=== PATIENT | female | born 1935 | race Caucasian/White ===

== ENCOUNTER 2019-09-22 17:54 | Inpatient (IN) | payer MEDICARE, OTHER ==
[~2019-09-22] VITALS: Ht 167.6 cm; Wt 58.5 kg
--- NOTE | ~2019-09-22 | CON ---
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 The patient has been consulted for constipation. The patient denies any abdominal pain, nausea, vomiting, diarrhea, hematemesis, hematochezia. The patient reports that she did have a normal colonoscopy some time in the past. It is unclear when it was done. PAST MEDICAL HISTORY: CVA with left-sided hemiparesis, mild cognitive impairment. PAST MEDICAL HISTORY: CHF, hypertension. PAST SURGICAL HISTORY: Appendectomy, cholecystectomy, right total knee arthroplasty. SOCIAL HISTORY: The patient has no history of smoking, alcohol or recreational drug use. FAMILY HISTORY: Not relevant. REVIEW OF SYSTEMS: Unable to obtain because of the patient's mental status. PHYSICAL EXAMINATION: GENERAL: The patient is alert and oriented x 1. HEENT: Mucous membranes are moist. There is no congestion. LUNGS: Clear to auscultation bilaterally. CARDIOVASCULAR: Rate and rhythm regular, S1, S2 present. ABDOMEN: Soft. There is no distention, guarding or rigidity. EXTREMITIES: Warm, well perfused. There is no edema. LABORATORY DATA: Hemoglobin 10.8, hematocrit 31.8, platelet count 450, WBC count 9.2. Sodium 134, potassium 4.1, chloride 98, bicarbonate 27, BUN 22, creatinine 1.3, total bilirubin 0.6, AST 31, ALT 18, alkaline phosphatase 68. IMAGING: Acute abdomen series findings suggestive of obstipation, [place] [id number] CONSULTATION Name: VERN BARRIENTOS Room: [address] IN [facility]#: [id number] Admission: 09/22/19 Attend Phys: Keven Zamora MD Discharge: Date of : 37 Report #: [id number] ASSESSMENT AND PLAN: Pleasant 84-year-old female with history outlined above, consulted for constipation. I would recommend giving her a bottle of magnesium citrate today, start her on MiraLax 17 grams p.o. daily starting tomorrow. Thank you for this consultation. By: 1455 Viktoriya Rose MD /coral
[2019-09-22 20:00] VITALS: BP 116/64
--- NOTE | 2019-09-23 04:33 | NUR ---
ASSUMED PT CARE AT 1930. PT ALREADY ASLEEP AT SHIFT CHANGE. PT AROUSABLE AND ANSWERED SOME ADMISSION QUESTIONS AND SLEPT THROUGH OTHERS. DENIED PAIN. WEARING BRIEF. VOID X1, NO STOOL THIS SHIFT. SMALL HEALING WOUND TO LEFT BUTTOCK, PICTURE IN CHART. BED ALARM ON FOR SAFETY. CALL LIGHT IN REACH. HOURLY ROUNDING IN PROGRESS, WILL CONTINUE TO MONITOR.
[2019-09-23 05:44] LABS: HEMATOCRIT 30.4 % (37.0-47.0); HEMOGLOBIN 10.4 gm/dL (12.0-15.0); MCH 32.2 pg (26.0-34.0); MCHC 34.3 g/dL (28.0-37.0); MCV 93.8 fL (80.0-100.0); MPV 9.9 fl. (7.2-11.1); RBC 3.24 mil/uL (4.20-5.00); RDW-CV 13.7 % (10.5-14.5); WBC 10.3 thou/uL (4.0-11.0)
--- NOTE | 2019-09-23 06:04 | NUR ---
SPOKE WITH HIMS ANSWERING SERVICE AT 0555 TO ASK THEM TO INFORM THE DOCTOR INTERLOCKING INSTALLER OF PT ARRIVAL AND NEED FOR CONSULT. PAGE WAS SENT TO DR. TAVAREZ. I ADVISED THE PAD CUTTER THAT A CALL BACK WAS NOT NECESSARY LONG DR. TAVAREZ WAS ADVISED OF THE PATIENT'S ARRIVAL FROM [facility] AND NEED FOR CONSULT TODAY.
--- NOTE | 2019-09-23 06:10 | NUR ---
DR. TAVAREZ RETURNED THE PAGE AND WAS ADIVSED OF THE NEED FOR CONSULT.
[2019-09-23 06:14] LABS: ALBUMIN 2.7 g/dL (3.4-5.0); CALCIUM 8.2 mg/dL (8.5-10.1); CREATININE 0.8 mg/dL (0.6-1.3); POTASSIUM 3.7 mmol/L (3.5-5.1); TOTAL BILIRUBIN 0.7 mg/dL (<0.1-1.0); TOTAL PROTEIN 6.4 g/dL (6.4-8.2)
[2019-09-23 08:00] VITALS: BP 118/66
--- NOTE | 2019-09-23 13:47 | NUR ---
Nutrition: Pt admitted to rehab with Rt CVA. Per RN, is eating well on Heart healthy diet. Pt was sound asleep at time of visit, 13:38. Noted small healing wound on buttock. Wt: 128#. Albumin 2.7. RX: diureticss, Fe, Ca/D, vit C. Low nutrition risk. Will follow weekly.
--- NOTE | 2019-09-23 18:21 | NUR ---
ASSESSMENT COMPLETED DOCUMENTED THIS MORNING. PATIENT DEMONSTRATES VISUAL DEFICITS ON THE LEFT, NIKOLSKI, AND DECREASED SHORT TERM MEMORY. ASSISTED TO BEDSIDE CHAIR FOR BREAKFAST AT NOTED FAIR APPETITE. WHEN PATIENT WAS IN BED FOR LUNCH SHE NEEDED TO BE ASSISTED WITH FEEDING. AT SUPPER PATIENT WAS ASSISTED BACK TO CHAIR AT THE BEDSIDE AND WAS ABLE TO FEED HERSELF AFTER STAFF SET UP TRAY. VENOUS DOPPLER REVEALED THROMBUS ON THE LEFT, SON AT THE BEDSIDE WHILE TEST WAS BEING PERFORMED. RESULTS CALLED TO DR. SILVA, STATED TO CALL DR. CLARK AND CONSULT VASCULAR. SON STATED THIS HAD ALREADY BEEN ADDRESSED AT SLE AND A FILTER HAD BEEN PLACED PRIOR TO DC. INFORMED DR. CLARK AND HE STATED THAT LONG SHE WAS ON THE XARELTO AND IT HAD BEEN ADRESSED AT [facility] WE DID NOT NEED VASCULAR AT THIS TIME.
[2019-09-23 20:04] VITALS: BP 110/70
--- NOTE | 2019-09-24 07:37 | NUR ---
ASSUMED CARE AT 1920. ALERT AND ORIENTED X 2. PLEASANT. HOOPA. MOD ASSIST WITH GAIT BELT AND WALKER. NEEDED MUCH CUEING DURING TRANSFER. TYLENOL GIVEN FOR BACK PAIN. BLE EDEMA 2+. PT REFUSED TO GET UP TO BATHROOM. HAD URINARY INCONTINENCE. NURSING DID ALL CARES. BLADDER SCAN AT 0100 WAS 255 CC AND 0600 WAS 179 CC. SLEPT WELL OTHERWISE. CALL LIGHT IN REACH AND BED ALARM ON.
[2019-09-24 08:18] VITALS: BP 124/62
--- NOTE | 2019-09-24 15:47 | NUR ---
Pt lives at home alone. Pt unable to provide much history. SW called pt son Keyon to complete initial rehab assessment. Pt had a fall 3 years ago and since then, pt has nurse 3 days a week who helps with in home assistance for pt. Pt son said that they can increase the time of assistance available for pt at dc if needed. Pt has hx of HH therapies through [facility]. Pt has LT insurance that helps cover the in home assistance and Medicare will cover the HH at dc if needed. Pt son to bring up hearing aids on Friday for pt. Pt son Keyon works from home and is supportive; pt other son lives in [place] and is supportive as well. SW to continue to follow to assist with safe dc planning.
--- NOTE | 2019-09-24 16:47 | NUR ---
ASSUMMED CARE OF PT AT 0730, PT ALERT, FORGETFUL TRANSFERS WITH MOD ASSIST, GB WALKER MUCH CUEING, PT NEEDS ASSIST TO EAT, NEEDS CUEING TO BRING FOOD TO MOUTH, PT C/O BACK PAIN, MEDICATED X 1 FOR DISCOMFORT, EDEMA IN LEGS, ELEVATED , VASCULAR HERE TO SEE PT, PT CONCERNED ABOUT HEARING AIDES, SON CALLED AND WILL BRING THEM TO HOSPITAL, PT DENIES NAUSEA THIS SHIFT, PT INCONTINENT AND ALSO VOIDED ON COMMODE,PT REPOSTIONED EVERY 2 HOURS, PARTICIPATED IN ALL THERAPIES, HOURLY ROUNDING COMPLETED, ASSESSMENT COMPLETE, WILL CONTINUE TO MONITOR.
[2019-09-24 20:08] VITALS: BP 123/70
--- NOTE | 2019-09-25 00:40 | NUR ---
ASSUMED CARE AT 1930. PATIENT RESTING IN CHAIR. CONFUSED AT TIMES. TAKES PILLS WHOLE WITH WATER. NEEDS CUEING FOR EVERYTHING, ESPECIALLY TRANSFERRING. UP WITH TWO FOR SAFETY BECAUSE SHE FOLLOWS COMMANDS SO POORLY. MOISTURE BARRIER APPLIED TO BOTTOM. UNABLE TO TELL WHEN SHE NEEDS TO VOID AND REFUSES REQUESTS TO TOILET PER BATHROOM. BRIEFS REMOVED AT HS TO ALLOW AIR TO SKIN. MEDICATED FOR PAIN AT HS WITH APAP. HOURLY ROUNDS CONTINUE. BED ALARM ON. CALL LITE IN REACH.
--- NOTE | 2019-09-25 05:14 | NUR ---
WAS AWAKE MORE THAN WAS ASLEEP THIS SHIFT. NEEDED FREQUENT AND REPEATED REORIENTATION AND CUEING. KEPT TRYING TO GET OUT OF BED, THINKING IT WAS DAYLIGHT AND HER SON WAS COMING. NO C/O PAIN. TURNS SELF. CLOSE OBSERVATION MAINTAINED. IS NEAR THE NURSE'S STATION ALLOWING STAFF TO SEE INTO ROOM EASILY. HOURLY ROUNDS CONTINUE. BED ALARM ON. CALL LITE IN REACH.
[2019-09-25 08:00] VITALS: BP 101/57
--- NOTE | 2019-09-25 17:55 | NUR ---
ASSESSMENT COMPLETED DOCUMENTED THIS MORNING. PATIENT HAS BEEN CONFUSED, EASILY IRRITATED, ARGUMENTATIVE, AGITATED, AND UNWILLING TO PARTICIPATE WITH THERAPIES TODAY. PATIENT 'TALKING' TO HER SONS AND GRANDSDONS WHO SHE THINKS ARE HERE. ACTUALLY TURNS HER HEAD AND ANSWER THEM TO HAVE A CONVERSATION WITH THEM AND THERE IS NOBODY AROUND HER. KEEPS REPEATING THAT SHE WANTS TO GO HOME, "IT'S MY BODY AND MY LIFE, I WANT TO TALK TO THE POLICE." SECURITY CALLED AND ALLOWED PATIENT TO VENT TO THEM EASING THE SITUATION SOME. PT TRYING TO WORK WITH TRANSFERS AND PATIENT BECAME AGITATED, YELLING OUT TO "STOP DAMMIT I WANT TO GO HOME." STRIKING AT THE THERAPIST. DR. CLARK ON THE FLOOR AND GAVE ONE TIME ORDER FOR HALDOL 1MG IM. OCCUPATIONAL THERAPY REQUESTED TO PLEASE HOLD ON GIVING IT UNTIL SHE HAS A CHANCE TO TRY AND WORK WITH PATIENT. OT TOOK PATIENT IN W/C AROUND THE HOSPITAL, ASSISTED HER WITH BATHING AND WHEN THEY RETURNED PATIENT WAS MUCH CALMER AND MORE REASONABLE. REMAINS CONFUSED AND REQUIRING MAX ASSIST WITH EATING/FEEDING AT MEALS D/T VISUAL DEFICITS. AFTER LUNCH PATIENT WAS ASSISTED TO BED D/T FALLING ASLEEP IN THE CHAIR AND HAS BEEN ASLEEP SINCE THEN. IS OBSERVED FROM THE NURSE'S STATION CONSTANTLY MOVING, PULLING AT BLANKETS WHILE ASLEEP BUT HAS NOT TRIED TO GET OOB. SEROQUEL 12,5MG STARTED AT 1215. BED ALARM ON AND HOURLY ROUNDS CONTINUE TO BE PERFORMED.
[2019-09-25 20:08] VITALS: BP 150/72
--- NOTE | 2019-09-26 04:44 | NUR ---
ASSUMED PT CARE CARE AT 1930. PT DROWSY BUT AROUSABLE, ALREADY IN BED AT SHIFT CHANGE. PT TOOK PILLS CRUSHED IN PUDDING. PT FIDGETING WITH BEDCOVERS BUT DID NOT TRY TO GET OUT OF BED. DENIES PAIN. TURNS SELF. PT INCONTINENT OF URINE X2, PERICARE PROVIDED, BARRIER CREAM APPLIED. NO STOOL THIS SHIFT. PT SLEPT WELL OVERNIGHT AFTER HS MEDS. BED ALARM ON FOR SAFETY. HOURLY ROUNDING IN PROGRESS, WILL CONTINUE TO MONITOR.
[2019-09-26 07:54] VITALS: BP 120/68
[2019-09-26 08:00] VITALS: BP 120/68
--- NOTE | 2019-09-26 17:05 | NUR ---
ASSESSMENT COMPLETED DOCUMENTED THIS MORNING. PATIENT HAS REMAINED IN BED RESTING DURING THE DAY. REFUSES TO ASSIST STAFF WITH TRANSFERRING TO CHAIR. MAX ASSISTANCE AT MEALS BEING FED BY STAFF, AT TIMES WILL NOT SWALLOW AND HOLDS FOOD IN HER MOUTH. HAS BEEN TURNED AND REPOSITIONED, INCONT OF URINE AND CARES PROVIDED PRN. WILL NOT OPEN EYES TO ACKNOWLEDGE STAFF INTERACTING WITH HER, EVEN WHEN BEING FED OR OFFERRED A DRINK.
[2019-09-26 19:15] VITALS: BP 120/67
--- NOTE | 2019-09-27 04:43 | NUR ---
ASSUMED PT CARE AT 1930. PT ALREADY IN BED AT SHIFT CHANGE. PT AWAKE AND INTERACTIVE, SOMEWHAT CONFUSED BUT PLEASANT. PT THOUGHT IT WAS MORNING AND HER SON'S WERE ON THEIR WAY TO VISIT. PT REORIENTED THAT IT WAS NIGHT TIME. TOOK PILLS CRUSHED IN PUDDING WITHOUT DIFFICULTY. PT INCONTINENT OF URINE, PERICARE PROVIDED, BARRIER CREAM APPLIED. NO STOOL THIS SHIFT. TURNS Q2. PT SLEPT WELL OVERNIGHT AFTER HS MEDS. BED ALARM ON FOR SAFETY. HOURLY ROUNDING IN PROGRESS, WILL CONTINUE TO MONITOR.
[2019-09-27 08:00] VITALS: BP 126/68
--- NOTE | 2019-09-27 16:39 | NUR ---
ASSUMMED CARE OF PT AT 0730, PT ALERT, CONFUSED, PT NEEDS CUEING FOR ALL TASKS, PT ANSWERS SOME ORIENTATION QUESTIONS AND AT OTHER TIMES ANSWERS QUESTIONS WITH AN IRRELEVANT ANSWER, TRANSFERS WTIH ASSIST OF 1-2 FROM BED TO CHAIR WITH GB AND WALKER. UP IN CHAIR MUCH OF SHIFT, VOIDS PER COMMODE AND INCONTINENT IN BRIEF, PT DENIES PAIN, PT REPOSTIONED EVERY 2 HOURS, PT NEEDS ASSIST TO EAT, APETITE DECREASED, PARTICIPATED IN ALL THERAPIES, HOURLY ROUNDING COMPLETED, ASSESSMENT COMPLETE, WILL CONTINUE TO MONITOR.
[2019-09-27 20:00] VITALS: BP 104/49
--- NOTE | 2019-09-28 04:23 | NUR ---
ASSUMED PT CARE AT 1930. PT ALREADY IN BED AT SHIFT CHANGE. PT AROUSES EASILY, ANSWERS QUESTIONS APPROPRIATELY. SOMEWHAT CONFUSED BUT PLEASANT. PT TOOL PILLS CRUSHED IN PUDDING WITHOUT DIFFICULTY. C/O HEADACHE, TYLENOL GIVEN PER MAY. PT INCONTINENT OF URINE, PERICARES PROVIDED, BARRIER CREAM APPLIED. NO STOOL THIS SHIFT. TURNS Q2, PT SLEPT WELL AFTER HS MEDS. BED ALARM ON FOR SAFETY. HOURLY ROUNDING IN PROGRESS, WILL CONTINUE TO MONITOR.
[2019-09-28 07:30] VITALS: BP 152/84
--- NOTE | 2019-09-28 16:27 | NUR ---
PATIENT ALERT AND ORIENTED X 3. FORGETFUL AT TIMES AND NEEDS REDIRECTION. PLEASANT. VITAL SIGNS STABLE ON ROOM AIR. AFEBRILE. DENIES PAIN AND NAUSEA AT THIS TIME. PARTICIPATED IN MORNING AND AFTERNOON THERAPIES. PATIENT PROGRESSING TOWARDS GOALS AND FEEDING HERSELF AT MEAL TIMES. FALL PRECAUTIONS IN PLACE AND BED ALARM ON. HOURLY ROUNDS MAINTAINED THROUGHOUT THE SHIFT. CALL LIGHT WITHIN REACH. NURSING WILL CONTINUE TO MONITOR.
[2019-09-28 20:10] VITALS: BP 101/56
--- NOTE | 2019-09-28 20:20 | NUR ---
RESTING QUIETLY IN BED. HARD OF HEARING AND HAS A LOSS OF LEFT PERIPHERAL VISION. TOOK MEDICATIONS WHOLE A FEW AT A TIME WITH WATER. TYLENOL GIVEN FOR COMPLAINT OF A HEADACHE. TRANSFERRED FROM BED TO BEDSIDE COMMODE WITH MODERATE ASSIST OF ONE, GAITBELT, WALKER, SOME LIFTING, CUES. ASSISTED WITH CT CARE. CALL LIGHT WITHIN REACH.
--- NOTE | 2019-09-29 04:50 | NUR ---
RESTED QUIETLY. NO FURTHER COMPLAINT OF A HEADACHE. HOURLY ROUNDING IN PROGRESS.
[2019-09-29 08:00] VITALS: BP 112/62
[2019-09-29 12:31] LABS: HEMATOCRIT 31.8 % (37.0-47.0); HEMOGLOBIN 10.8 gm/dL (12.0-15.0); MCH 31.8 pg (26.0-34.0); MCHC 33.8 g/dL (28.0-37.0); MPV 9.3 fl. (7.2-11.1); RBC 3.38 mil/uL (4.20-5.00); RDW-CV 14.3 % (10.5-14.5); WBC 9.2 thou/uL (4.0-11.0)
[2019-09-29 12:42] LABS: ALBUMIN 2.7 g/dL (3.4-5.0); CALCIUM 8.5 mg/dL (8.5-10.1); CREATININE 1.3 mg/dL (0.6-1.3); POTASSIUM 4.1 mmol/L (3.5-5.1); TOTAL BILIRUBIN 0.6 mg/dL (<0.1-1.0)
--- NOTE | 2019-09-29 15:32 | NUR ---
EMMA and Dr Zamora met with pt to review team conference summary and plan to reteam. SW called pt son Keyon and reviewed plans and recommendations. Pt son said that he and his brother will provide as much support and arrange as much assistance as needed for pt whenever pt is ready to dc. SW to continue to follow to assist with safe dc planning.
[2019-09-29 16:00] VITALS: BP 100/59
[2019-09-29 16:02] VITALS: BP 87/63
--- NOTE | 2019-09-29 18:00 | NUR ---
ALERT TO SELF. HAS DEMENTIA. UP WITH 1 ASSIST, GAIT BELT AND WALKER. MOM GIVEN FOR CONSTIPATION. PO PAIN MEDICATION GIVEN FOR HEADACHE. APPETITE POOR DR NOTIFIED. MESSAGE LEFT FOR MOBILE PHLEBOTOMIST ORDERED. NEEDS CUEING/SUPERVISION WITH EATTING. PATIENT C/O DIZZINESS. ORTHOSTATIC B/P DONE. NEW ORDERED FOR IVF. NEW IV STARTED WITHOUT DIFFICULTY. IVF CURRENTLY INFUSING WITHOUT DIFFICULTY. SOME TIMES WILL USE CALL LIGHT. FALL PRECAUTIONS IN PLACE. BED ALARM AND CHAIR ALARM USED.
[2019-09-29 20:00] VITALS: BP 106/64
--- NOTE | 2019-09-29 22:42 | NUR ---
ASSUMED CARE AT 1930. PATIENT RESTING IN BED. WAS CONFUSED DURING CHANGE OF SHIFT BEDSIDE REPORT BUT AFTER NAPPING FOR A LITTLE WHILE SHE WAS MUCH MORE ALERT AND ORIENTED. AWAKENED FOR HS MEDS, AND HAD A LITTLE TROUBLE WITH TIME BECAUSE IT WAS DUSK AND 1999, SHE DIDN'T UNDERSTAND IT WAS 8 AT NIGHT BEING STILL LIGHT OUT, THOUGHT IT WAS MORNING BUT WAS ABLE TO BE REDIRECTED. COOPERATIVE AND TOOK PILLS A COUPLE AT A TIME WITHOUT DIFF. BLOOD PRESURE 106/64, METOPROLOL HELD. IVF INFUSING UNTIL 2200 TO LT ARM. USED CALL LITE AND VOIDED PER TOILET AT 2200. UP WITH GAIT BELT, WALKER, CUEING DUE TO VISUAL ISSUES. BRIEF WAS SLIGHTLY DAMP AND WAS CHANGED. TURNS SELF. HOURLY ROUNDS CONTINUE. BED ALARM ON. CALL LITE IN REACH.
--- NOTE | 2019-09-30 05:35 | NUR ---
SLEPT MOST OF THE NIGHT. UP TO VOID ONCE. TURNS SELF. NO C/O PAIN. HOURLY ROUNDS CONTINUE. BED ALARM ON. CALL LITE IN REACH.
[2019-09-30 08:00] VITALS: BP 167/74
[2019-09-30 20:00] VITALS: BP 114/63
--- NOTE | 2019-10-01 04:54 | NUR ---
ASSUMED CARES AT 1920. ALERT AND ORIENTED X 2. CONFUSION. DENIED ANY PAIN. MIN ASSIST WITH GAIT BELT AND WALKER. NEEDS LOTS OF CUEING WITH MAJORITY OF TASKS. URINARY INCONTINENCE AT TIMES. SALINE LOCK TO LEFT FOREARM FLUSHING WELL. SLEPT MOST OF THE NIGHT. CALL LIGHT IN REACH AND BED ALARM ON.
[2019-10-01 08:00] VITALS: BP 103/71
--- NOTE | 2019-10-01 17:24 | NUR ---
ASSESSMENT COMPLETED DOCUMENTED THIS MORNING. NO BEHAVIORS DEMONSTRATED TODAY, HAS BEEN COOPERATIVE AND PARTICIPATING WITH THERAPY WELL. 2 ACETAMINOPHEN 325MG TABS GIVEN AT 1700 FOR C/O BACK PAIN. TUBIGRIP ON LLE AND IS UP IN RECLINER AT THE BEDSIDE FOR SUPPER.
[2019-10-01 19:50] VITALS: BP 98/50
--- NOTE | 2019-10-01 20:00 | NUR ---
AWAKENED FOR REASSESSMENT AND MEDICATION PASS. PATIENT UPSET ABOUT BEING AWAKENED. DID EVENTUALLY AGREE TO TAKE MEDICATIONS WITH COAXING. CALL LIGHT WITHIN REACH.
--- NOTE | 2019-10-02 05:01 | NUR ---
INCONTINENT OF URINE X ONE. CT CARE GIVEN. ASSISTED WITH REPOSITIONING. HOURLY ROUNDING IN PROGRESS.
[2019-10-02 07:45] VITALS: BP 113/59
[2019-10-02 09:30] VITALS: BP 126/67
--- NOTE | 2019-10-02 10:30 | NUR ---
APPROX 0930 PT C/O PAIN IN CENTER OF CHEST/EPIGASTRIC. COULD NOT SPECIFY DULL VS SHARP, BUT DID VERIFY THE PAIN WAS NOT RADIATING. VS REASSESSED READINGS FOLLOWS: 126/67, HR OF 63 AND REGULAR, RR 18 DENIES SOA, O2 SAT 99% ON ROOM AIR. DR PRICE NOTIFIED AND EKG REQUESTED. TROPONIN AND CXR ORDERED PER DR PRICE. PT REFUSED CXR X2. PHYSICIAN AWARE. PT PARTICIPATED IN THERAPIES ONCE EXAMS WERE COMPLETE AND NO ABNORMAL RESULTS WERE REPORTED. PT RESTS IN BED W/CALL LIGHT IN REACH. WILL CONTINUE TO MONITOR.
--- NOTE | 2019-10-02 17:01 | NUR ---
PT AWAKE/ALERT, CONFUSED AT TIMES. VSS. PT HAS VISION DEFECIT ON L SIDE. [place], HEARING AIDES AT BEDSIDE. PT UP W/GAIT BELT AND WALKER. PT IS BRIEFED FOR INTERMITTENT STRESS INCONTINENCE. PT ABLE TO SWALLOW PILLS W/O DIFFICULTY. APPROX 0930 PT C/O CHEST DISCOMFORT (SEE PREVIOUS NOTE). PT HAS NO FURTHER COMPLAINTS OF PAIN AT THIS TIME. PT CALLED OUT W/ C/O NAUSEA, REGLAN ADMINISTERED ORDERED. PT ENCOURAGED TO DRINK MORE WATER KEPT IN REACH ON OVERBED TABLE. PT UP TO RECLINER, DRESSED IN STREET CLOTHES. PT RESTING IN ROOM WITH CALL LIGHT IN REACH. WILL CONTINUE TO MONITOR.
[2019-10-02 20:00] VITALS: BP 111/56
--- NOTE | 2019-10-03 05:23 | NUR ---
ASSUMED PT CARE AT 1930. PT SLEEPING BUT AWAKENS WITH ASSESSMENT. PT HO-CHUNK. SWALLOWED PILLS WITH WATER WITHOUT DIFFICULTY. DENIED PAIN. INCONTINENT OF URINE X1. PERICARE PROVIDED. ASSISTED WITH REPOSITIONING. SL TO LEFT FOREARM FLUSES EASILY. CALL LIGHT IN REACH. BED ALARM ON FOR SAFETY. HOURLY ROUNDING IN PROGRESS, WILL CONTINUE TO MONITOR.
[2019-10-03 07:30] VITALS: BP 102/45
--- NOTE | 2019-10-03 18:10 | NUR ---
ALERT WITH FORGETFULNESS/DEMENTIA. DENIED NEED FOR PAIN MEDICATION WHEN OFFERED. REGLAN GIVEN FOR C/O NAUSEA. MOM GIVEN FOR CONSTIPATION. VOIDED X2 WITH SLIGHT STRESS INCONTINENCE X1. REPOSITIONED APROXIMATELY EVERY 2 HOURS TO TRY AND KEEP OFF OF LEFT BUTTOCK HEALING WOUND. NOTIFIED OF LOW B/P THIS AM. UP WITH 1 ASSIST, GAIT BELT AND WALKER. USED CALL LIGHT WHEN NEEDING ASSISTANCE TODAY. FALL PRECAUTIONS IN PLACE. BED ALARM AND CHAIR ALARM USED.
[2019-10-03 20:00] VITALS: BP 100/57
--- NOTE | 2019-10-04 05:40 | NUR ---
ASSUMED CARE AT 1920. ALERT AND ORIENTED BUT FORGETFUL. MIN ASSIST WITH GAIT BELT AND WALKER. DID HAVE URINARY INCONTINENCE. SLEPT WELL. TURNED ONTO SIDES OVERNIGHT. CALL LIGHT IN REACH AND BED ALARM ON.
[2019-10-04 08:04] VITALS: BP 94/50
--- NOTE | 2019-10-04 15:28 | EKG ---
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 : 1935 Requested By: Lamont Skinner Order Number: [id number] Sg MD: Jero Mueller Measurements Intervals [place] Rate: 57 P: -6 MN: 202 QRS: -21 QRSD: 105 T: 52 QT: 447 QTc: 436 Interpretive Statements Sinus rhythm Inferior infarct, old Possible anteroseptal scar Baseline wander in lead(s) V4 No previous ECG available for comparison Electronically Signed On 10-04-2019 15:28:00 CDT by Jero Mueller [email or web address] <ELECTRONICALLY SIGNED> By: Jero Mueller MD, [facility] 10/04/19 1528 0954 0954 Jero Mueller MD, [facility] /EPI
--- NOTE | 2019-10-04 15:28 | EKG ---
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 : 1935 Requested By: Keven Zamora Order Number: [id number] Reading MD: Jero Mueller Measurements Intervals [place] Rate: 55 P: 4 AL: 206 QRS: -18 QRSD: 108 T: 67 QT: 440 QTc: 421 Interpretive Statements Sinus rhythm Borderline left axis deviation Borderline low voltage, extremity leads Baseline wander in lead(s) V4 Compared to ECG 10/02/2019 09:54:59 Possible inferior and anteroseptal scars persist Electronically Signed On 10-04-2019 15:28:24 CDT by Jero Mueller [email or web address] <ELECTRONICALLY SIGNED> By: Jero Mueller MD, [facility] 10/04/19 1528 0955 0955 Jero Mueller MD, [facility] /EPI
--- NOTE | 2019-10-04 15:58 | NUR ---
ASSUMED CARE AT 0730. ALERT ORIENTED X 2 PLEASANT COOPERATIVE. HX OF CVA L NEGLECT. RESTING IN RECLINER AT BEDSIDE. PT. STATES FEELS NAUSEOUS REQUESTED MED FOR THIS. TOOK ALL HER A.M. MEDS BUT HELD DIURETICS AND BP MEDS DR. PRICE ROUNDED AND IS AWARE OF LOW BP AND HOLDING MEDS TODAY. BP WAS TAKEN AT 1045 WITH P.T. PT. C/O DIZZINESS SITTING 120/83 STANDING 103/75. SHE DID CONTINUE TO WORK WITH P.T. RESTING IN BED ON RT. SIDE AFTER THERAPIES COMPLETED. USES CALL LIGHT APPROPRIATELY FOR ASSIST.
[2019-10-04 16:45] VITALS: BP 105/58
[2019-10-04 16:46] VITALS: BP 96/64
[2019-10-04 16:47] VITALS: BP 101/69
[2019-10-04 20:00] VITALS: BP 110/65
--- NOTE | 2019-10-05 05:44 | NUR ---
ASSUMED CARES AT 1920. ALERT AND ORIENTED. X 2. FORGETFUL. DENIED ANY PAIN OR SOA, N/V. MIN ASSIST WITH GAIT BELT AND WALKER. UP TO BR. PT HAS NOT HAD BM. RECOMMENDED PT TAKE SUPPOSITORY BUT PT REFUSED. BARRIER CREAM TO BOTTOM. PT TURNED THROUGHTOUT THE NIGHT. SLEPT WELL. CALL LIGHT IN REACH AND BED ALARM ON.
[2019-10-05 08:00] VITALS: BP 103/62
--- NOTE | 2019-10-05 16:17 | NUR ---
ASSUMMED CARE OF PT AT 0730, PT ALERT, FORGETFUL, CONFUSED AT TIMES, PT TRANSFERS WITH ASSIST OF 1, GB WALKER, CUEING, PT DENIES PAIN, PT DENIES DIZZINESS THIS SHIFT BUT DOES C/O NAUSEA, MEDICATED PER ORDER, PT HAS DECREASED APETITE, MODERATE HARD STOOL INCONTINENT X 1, ABD X/R COMPLETED AND CALLED TO PHYSICIAN, NO FURTHER ORDERS, BP 103/62 THIS AM, MEDS HELD AND DISCUSSED WITH PHYSICIAN, DRY SPOT ON LEFT BUTTOCK, BARRIER OINTMENT APPLIED, PT REPOSTIONED EVERY 2 HOURS, PARTICIPATED IN ALL THERAPIES, HOURLY ROUNDING COMPLETED, ASSESSMENT COMPLETE, WILL CONTINUE TO MONITOR.
[2019-10-05 19:20] VITALS: BP 94/55
--- NOTE | 2019-10-05 19:40 | NUR ---
SITTING UP IN RECLINER WITH LEGS ELEVATED WATCHING TV. ORIENTED TO NAME. PATIENT THOUGHT IT WAS MORNING AND ASKED IF IT WAS COLD OUTSIDE. WENT TO GET PATIENT A SNACK AND PATIENT FELL ASLEEP. TRANSFERRED FROM RECLINER WITH MODERATE ASSIST OF ONE, GAITBELT, WALKER, CUEING DUE TO LEFT PERIPHERAL VISION LOSS. VERY HARD OF HEARING. CALL LIGHT WITHIN REACH.
--- NOTE | 2019-10-06 05:15 | NUR ---
SLEPT SOUNDLY. HOURLY ROUNDING IN PROGRESS.
[2019-10-06 08:13] VITALS: BP 101/51
--- NOTE | 2019-10-06 15:26 | NUR ---
EMMA and Dr Zamora met with pt to review team conference summary and plan for pt to remain on rehab unit one more week with team to reassess pt length of stay during team conference next Friday. Pt said okay. SW called pt son Keyon and reviewed team conference summary and plan to reteam. SW explained team's recommendations for more assist at home and possibly needs care at all times; pt son to discuss this with his brother and then determine if pt might need SNF at dc. SW to continue to follow to assist with safe dc planning.
--- NOTE | 2019-10-06 17:13 | NUR ---
ASSUMMED CARE OF PT AT 0730, PT ALERT, FORGETFUL, CONFUSED AT TIMES, USES CALL LIGHT APPROPRIATELY, PT APETITE POOR, CONSULTED CASTING DIRECTOR FOR RECOMMENDATIONS, PT DENIES NAUSEA TODAY BUT GIVEN REGLAN TO PREVENT STARTING OF NAUSEA, TAKING FLUIDS BUT ONLY ATE A FEW BITES OF FOOD, PT GIVEN MOM AND SUPPOSITORY WITH NO FURTHER STOOL OUT, PT DENIES ABDOMINAL PAIN, LATE THIS AFTERNOON WHEN WORKING WITH PHYSICAL THERAPY, PT COMPLAINED OF LEFT HIP PAIN, MEDICATED FOR PAIN, SMALL RED AREA NOTED ON COCCYX, WOUND CONSULT PLACED, PT REPOSTIONED EVERY 2 HOURS, WAFFLE CUSHION IN CHAIR, PARTICIPATED IN SOME THERAPIES, HOURLY ROUDING COMPLETED, ASSESSMENT COMPLETE, WILL CONTINUE TO MONITOR.
--- NOTE | 2019-10-06 19:30 | NUR ---
SITTING UP IN RECLINER. DENIES DISCOMFORT. ANXIOUS AND CONFUSED. THINKS IT IS MORNING. TRANSFERS WTIH CGA, GAITBELT, WALKER, CUEING DUE TO LEFT VISUAL PERIPHERAL LOSS. HARD OF HEARING. CALL LIGHT WITHIN REACH.
[2019-10-06 19:33] VITALS: BP 95/55
--- NOTE | 2019-10-07 04:51 | NUR ---
SLEPT SOUNDLY. HOURLY ROUNDING IN PROGRESS.
[2019-10-07 08:27] VITALS: BP 96/55
--- NOTE | 2019-10-07 16:28 | NUR ---
WOUND NURSE: MADAI ASSESSED FOR OPEN PRESSURE INJURY. HAS A INTACT SCAR. NO WOUND. NO INTERVENTION REQUIRED. WILL DC WOUND CONSULT.
[2019-10-07 20:00] VITALS: BP 122/68
--- NOTE | 2019-10-08 05:27 | NUR ---
ASSUMED PT CARE AT 1930. PT ASLEEP IN BED, WAKES WITH ASSESSMENT. PT IS TALKATIVE AND COHERENT, COMPLAINING SHE HAS A STOMACHE ACHE. PT TOOK EVENING MEDS WITH WATER WITHOUT DIFFICULTY. PT UP WITH CGA, GAIT BELT AND WALKER. PT SLEPT WELL BETWEEN TRIPS TO THE BATHROOM. STOOL X3 THIS SHIFT. USES CALL LIGHT SOMETIMES AND OTHER TIMES CALLS OUT. BED ALARM ON FOR SAFETY. HOURLY ROUNDING IN PROGRESS, WILL CONTINUE TO MONITOR.
[2019-10-08 08:00] VITALS: BP 115/67
--- NOTE | 2019-10-08 16:40 | NUR ---
ALERT TO SELF. HAS SOME FORGETFULNESS AND DEMENTIA. UP WITH STAND BY ASSIST, GAIT BELT AND WALKER. C/O OF PAIN IN RIGHT HIP WHEN UP IN CHAIR BUT ONCE LAYING IN BED DENIED PAIN. HERE AND NOTIFIED. HAD LARGE BOWEL MOVEMENT THIS AM. HAS BEEN CONTINENT OF BOWEL AND BLADDER TODAY. USES CALL LIGHT AT TIMES. FALL PRECAUTIONS IN PLACE. BED AND CHAIR ALARM USED. REPOSITIONED AT LEAST EVERY 2 HOURS TODAY.
[2019-10-08 20:00] VITALS: BP 108/51
--- NOTE | 2019-10-09 04:50 | NUR ---
ASSUMED PT CARE AT 1930. PT ALREADY IN BED AT SHIFT CHANGE. PT ASKING IF SHE OPENED THE DOOR WOULD AN ALARM GO OFF. PT CONFUSED BUT PLEASANT. UP WITH MIN ASSIST, GAIT BELT AND WALKER TO VOID X2. NO STOOL THIS SHFIT. TURNED Q2 WHEN ALLOWED. BED ALARM ON FOR SAFETY. CALL LIGHT IN REACH. HOURLY ROUNDING IN PROGRESS, WILL CONTINUE TO MONITOR.
--- NOTE | 2019-10-09 18:10 | NUR ---
ASSESSMENT COMPLETED DOCUMENTED THIS MORNING. PATIENT HAS BEEN UP AND AMBULATING TO THE BR WITH ASSIST OF ONE FWW AND GB. HAS BEEN PLEASANTLY CONFUSED...ASKED THIS NURSE "HAS ANYONE PUT OUT A MISSING PERSONS REPORT ON ME?" POOR APPETITE, IS TAKING FLUIDS FAIR. ATTEMPTED TO GET PATIENT TO DRINK BOTTLE OF MAG CITRATE AND SHE ONLY TOOK ABOUT 1/3 OF IT AND REFUSED ANYMORE. NO BOWEL MOVEMENTS TODAY.
[2019-10-09 19:48] VITALS: BP 105/58
--- NOTE | 2019-10-09 23:05 | NUR ---
ASSUMED CARE AT 1930. PATIENT RESTING IN BED AND COOPERATIVE WITH VITALS AND ASSESSMENT. AT 1999 BECAME AGGRESSIVE, CONFUSED, INSISTING SHE WAS IN [facility] AND STATING THAT THE STAFF WAS LYING TO HER WHEN TRYING TO TELL HER SHE WAS IN [place] AT [facility]. SET OFF BED ALARM AND PROCEEDED TO TRY TO FIND HER PURSE, REFUSING TO LISTEN THAT IT WAS NOT HERE. REFUSED TO TAKE MEDS EXCEPT FOR SEROQUEL EVEN AFTER ANOTHER NURSE ATTEMPTED. REPEATED REASSURANCE GIVEN THAT SHE WAS IN THE HOSPITAL AND SHE WAS BEING CARED FOR. TOOK SEROQUEL AT 2139. SETTLED DOWN A BIT AFTER 2214. VOIDED PER TOILET, SKIN CARE DONE, MOISTURE BARRIER APPLIED. RETURNED TO BED. WATCHING TV AT THIS TIME. TURNS SELF, LYING ON SIDE. HOURLY ROUNDS CONTINUE. BED ALARM ON. CALL LITE IN REACH.
--- NOTE | 2019-10-10 06:35 | NUR ---
SLEPT AFTER ABOUT 2300 SOUNDLY. INCONTINENCE BRIEF DRY, AND PATIENT DENIES NEEDING TO VOID. PATIENT RETURNED TO SLEEP. NO C/O PAIN. HOURLY ROUNDS CONTINUE. BED ALARM ON. CALL LITE IN REACH.
[2019-10-10 08:00] VITALS: BP 125/65
--- NOTE | 2019-10-10 18:25 | NUR ---
ASSESSMENT COMPLETED DOCUMENTED THIS MORNING. PATIENT DEMONSTRATES MORE RESISTANCE TO EATING/DRINKING/AND TAKING HER MEDICATIONS. BECOMES FRUSTRATED AND IRRITATED WITH NURSING STAFF WHEN FLUIDS OR FOOD IS OFFERRED. HAS ONLY EATEN A COUPLE OF BITES AT EACH MEAL TODAY. DID COMPLETE A SERVING OF ENSURE PUDDING. FLUIDS ARE ONLY TAKEN SPARINGLY AND SHE PUSHES IT AWAY. DID MANAGE TO GET PATIENT TO TAKE HER MIRALAX IN 120CC OF PRUNE JUICE THIS MORNING IN ADDITION TO 10 MG OF BISACODYL, AND A DOSE OF MOM. HAS ONLY BEEN UP TO THE BR X1 TO VOID, BRIEF WAS SOILED WITH URINE AND CARES WERE PROVIDED. NO BOWEL MOVEMENT THIS SHIFT.
[2019-10-10 19:45] VITALS: BP 108/60
--- NOTE | 2019-10-10 22:34 | NUR ---
ASSUMED CARE AT 1930. PATIENT RESTING IN BED ON LEFT SIDE. PATIENT DID TAKE MEDS THIS PM. BP MEDS HELD DUE TO LOW BP. ON LEFT SIDE, REFUSED TO ADJUST POSITIONS. TAKES PILLS WHOLE A FEW AT A TIME. DID NOT TAKE MUCH OF HER MIRILAX BUT DID TAKE THE OTHER PILLS. REFUSED HS SNACK. NO BM THUS FAR THIS SHIFT. HAD JUST VOIDED PRIOR TO CRIMPING PRESS OPERATOR. DENIES PAIN. HOURLY ROUNDS CONTINUE. BED ALARM ON. CALL LITE IN REACH.
--- NOTE | 2019-10-11 05:01 | NUR ---
PATIENT SLEPT ALL NIGHT LONG. REFUSED ASSIST WITH TURNS. NO C/O PAIN. HOURLY ROUNDS CONTINUE. BED ALARM ON. CALL LITE IN REACH.
[2019-10-11 07:30] VITALS: BP 121/67
[2019-10-11 10:50] VITALS: BP 114/70
--- NOTE | 2019-10-11 15:47 | NUR ---
ASSUMED CARE AT 0730. ALERT ORIENTED PLEASANT COOPERATIVE. HX OF CVA L NEGLECT. RESTING IN BED AT 0730. VSWNL. TOOK MEDS WITHOUT DIFFICULTY THIS A.M. REFUSES MIRALAX WAS UP IN RECLINER AND REFUSED TO GET UP FOR P.T. STATED NAUSEA AND DIZZINESS BP WAS 114/70 P 77 @ 1050. MEDICATED WITH PRAbel SERNAFRAN. RESTED IN BED AND SPEECH THERAPY WORKED WITH HER. REFUSED LUNCH BUT REQUESTED SOUP AND SCHUYLER TOOK SOME OF EACH. WEARS PULLUPS FOR INCONTINENCE.
[2019-10-11 19:15] VITALS: BP 100/49
--- NOTE | 2019-10-12 06:49 | NUR ---
ASSUMED CARES AT 1920. ALERT AND ORIENTED. FORGETFUL. DENIED ANY PAIN. PT INCONTINENT OF URINE AND WAS VERY RESISTENT TO ASSISTANCE WITH CARES. REFUSED TO GET UP TO BATHROOM. BARRIER CREAM APPLIED TO AREA TO LEFT BUTTOCK. SLEPT WELL. CALL LIGHT IN REACH.
[2019-10-12 08:00] VITALS: BP 105/60
[2019-10-12 10:33] LABS: ABSOLUTE BASOPHILS 0.1 thou/uL (0.0-0.2); ABSOLUTE LYMPHOCYTES 0.9 thou/uL (0.8-5.3); ABSOLUTE MONOCYTES 0.4 thou/uL (0.0-1.2); ABSOLUTE NEUTROPHILS 6.2 thou/uL (1.6-8.1); EOSINOPHILS 0.6 %; HEMATOCRIT 34.3 % (37.0-47.0); HEMOGLOBIN 11.7 gm/dL (12.0-15.0); LYMPHOCYTES 12.1 %; MCH 32.5 pg (26.0-34.0); MCHC 33.9 g/dL (28.0-37.0); MCV 95.7 fL (80.0-100.0); MPV 9.5 fl. (7.2-11.1); NUCLEATED RBCS 0 /100WBC; PLATELET COUNT* 266 thou/uL (150-400); POLYS 81.3 %; RBC 3.59 mil/uL (4.20-5.00); RDW-CV 14.9 % (10.5-14.5); WBC 7.7 thou/uL (4.0-11.0)
[2019-10-12 10:50] LABS: ALBUMIN 2.8 g/dL (3.4-5.0); CALCIUM 9.1 mg/dL (8.5-10.1); CREATININE 1.4 mg/dL (0.6-1.3); POTASSIUM 4.4 mmol/L (3.5-5.1); TOTAL BILIRUBIN 0.5 mg/dL (<0.1-1.0)
--- NOTE | 2019-10-12 15:50 | NUR ---
ALERT TO SELF ONLY. UP WITH 1 ASSIST, GAIT BELT AND WALKER. DENIED NEED FOR PAIN MEDICATION. NAUSEA MEDICATION GIVEN X1. HAD SEVERAL LOOSE STOOLS TODAY. BARRIER CREAM APPLIED TO SMALL OPEN AREA ON LEFT BUTTOCK. REPOSITIONED SEVERAL TIMES THROUGHOUT DAY. INCONTINENT OF URINE AND BOWELS TODAY. USES CALL LIGHT WHEN NEEDING ASSIST. FALL PRECAUTIONS IN PLACE. BED ALARM AND CHAIR ALARM USED.
[2019-10-12 20:03] VITALS: BP 108/63
--- NOTE | 2019-10-13 06:53 | NUR ---
ASSUMED CARES AT 1920. ALERT AND ORIENTED BUT FORGETFUL. MIN ASSIST WITH GAIT BELT AND WALKER. UP TO BATHROOM X 1. ABLE TO OBTAIN UA SPECIMEN THIS AM. URINE DARK YELLOW CLOUDY WITH SEDIMENT. BARRIER CREAM TO LEFT BUTTOCK. SLEPT WELL. CALL LIGHT IN REACH AND BED ALARM ON.
[2019-10-13 06:54] LABS: URINE BILIRUBIN NEGATIVE (Negative); URINE BLOOD 1+ (Negative); URINE CLARITY CLEAR; URINE COLOR YELLOW; URINE GLUCOSE-RANDOM NEGATIVE (Negative); URINE KETONES NEGATIVE (Negative); URINE LEUKOCYTES 3+ (Negative); URINE NITRITE POSITIVE (Negative); URINE PROTEIN TRACE (Negative); URINE UROBILINOGEN 0.2 E.U./dl (0.2-1.0)
[2019-10-13 07:00] LABS: SQUAMOUS 0-3 Few /LPF (0-3); URINE WBC >25 Many /HPF (0-5)
[2019-10-13 07:01] LABS: CASTS None Seen /LPF (None Seen); CRYSTALS None Seen /LPF (None Seen); MUCUS None Seen strn/LPF (None Seen); URINE RBC 3-10 Few /HPF (0-2)
[2019-10-13 07:54] VITALS: BP 88/48
--- NOTE | 2019-10-13 17:11 | NUR ---
Team conference held today. Pt sleeping and then working with therapies later in the afternoon. EMMA called and spoke with pt son Keyon to review team conference summary and plan for pt to dc to SNF possible on Friday or Friday if needed. EMMA faxed referral to [facility] and will follow up to continue to assist with safe dc planning.
--- NOTE | 2019-10-13 17:46 | NUR ---
ALERT TO SELF. UP WITH 1 ASSIST, GAIT BELT AND WALKER. DENIES NEED FOR PAIN MEDICATION. B/P LOW THIS AM AND FINE CRACKLES HEARD IN RIGHT LOWER LUNG. DR NOTIFIED OF UA RESULTS, LOW B/P AND LUNG SOUNDS/CXR RESULTS. NEW ORDERS NOTED. NEW IV STARTED WITHOUT DIFFICULTY AND IVF BOLUS INFUSED WITHOUT DIFFICULTY. B/P BETTER AFTER IVF BOLUS. REPOSITIONED AT LEAST EVERY 2 HOURS. BARRIER CREAM APPLIED TO WOUND ON BUTTOCK. USING CALL LIGHT TO ASK FOR ASSIST TODAY. FALL PRECAUTIONS IN PLACE. BED ALARM AND CHAIR ALARM USED.
[2019-10-13 19:39] VITALS: BP 115/61
--- NOTE | 2019-10-14 05:02 | NUR ---
ASSUMED CARES AT 1920. ALERT AND ORIENTED X 1-2. FORGETFUL AND CONFUSED. MIN ASSIST WITH GAIT BELT AND WALKER. UP TO BATHROOM. SALINE LOCK TO LEFT FOREARM FLUSHING WELL. SLEPT WELL. CALL LIGHT IN REACH AND BED ALARM ON.
[2019-10-14 08:00] VITALS: BP 111/63
--- NOTE | 2019-10-14 15:00 | NUR ---
SW followed up with [facility] who are considering her for SNF at dc; they will need negative covid test result within 24-48 hrs of dc. If pt dc Friday, can test tomorrow, if Friday, test Friday or Friday prior to pt dc. SW to continue to follow to assist with finalizing safe dc plan.
--- NOTE | 2019-10-14 16:36 | NUR ---
ASSUMMED CARE OF PT AT 0730, PT ALERT, CONFUSED, IMPULSIVE AT TIMES, PT DENIES PAIN, TRANSFERS WITH GB WALKER SBA ASSIST, UP IN CHAIR FOR MEALS, PT WILL ONLY PARTICIPATE IN ACTIVIES WHEN SHE IS READY, BP IMPROVED THIS SHIFT AT 111/63, VOIDS PER TOILET AND IS INCONTINENT AT TIMES, NO BM THIS SHIFT, PT REPOSTIONED EVERY 2 HOURS, SL PATENT TO LEFT FA, APETITE POOR, NEEDS ENCOURAGEMENT TO EAT AND REFUSES MOST FOOD, WILL DRINK ENSURE AND DID HAVE SOME PUDDING THIS SHIFT, AND A FEW BITES OF FOOD, HOURLY ROUNDING COMPLETED, PARTICIPATED IN ALL THERAPIES, ASSESSMENT COMPLETE, WILL CONTINUE TO MONITOR.
[2019-10-14 19:55] VITALS: BP 136/80
--- NOTE | 2019-10-15 04:30 | NUR ---
ASSUMED PT CARE AT 1930. PT ALERT AND ORIENTED TO SELF, OCCASIONALLY FORGETFUL. PT TOOK MEDS WITH WATER WITHOUT DIFFICUTLY. SALINE LOCK TO LEFT FOREARM PATENT. VOIDS PER TOILET, UP WITH ASSIST OF ONE, GAIT BELT AND WALKER. NO STOOL THIS SHIFT. PT SLEPT WELL. CALL LIGHT IN REACH. BED ALARM ON FOR SAFETY. HOURLY ROUNDING IN PROGRESS, WILL CONTINUE TO MONITOR.
[2019-10-15 07:55] VITALS: BP 107/59
--- NOTE | 2019-10-15 16:35 | NUR ---
ASSUMMED CARE OF PT AT 0730, PT ALERT, CONFUSED FORGETFUL, PT TRANSFERS WITH MIN/SBA GB WALKER, NEEDS CUEING, UP IN CHAIR FOR MEALS, C/O NAUSEA THIS PM, MEDICATED X 1 WITH GD RELIEF, DENIES PAIN, AMB TO TOILET TO VOID, NO BM THIS SHIFT, INCONTINENT OF URINE IN BRIEF AT TIMES, PARTICIPATED IN ALL THERAPIES, HOURLY ROUNDING COMPLETED, ASSESSMENT COMPLETE, WILL CONTINUE TO MONITOR.
[2019-10-15 20:00] VITALS: BP 109/58
--- NOTE | 2019-10-16 04:49 | NUR ---
ASSUMED PT CARE AT 1930. PT SITTING UP IN CHAIR WATCHING TELEVISION. COMPLAINED OF NAUSEA, REGLAN GIVEN PER MAY. PT TO BATHROOM WITH CGA, GAIT BELT AND WALKER TO VOID. INCONTINENT IN BRIEF AT TIMES. SLEPT WELL OVERNIGHT. DENIES PAIN OR FURTHER NAUSEA. CALL LIGHT IN REACH. BED ALARM ON FOR SAFETY. HOURLY ROUNDING IN PROGRESS, WILL CONTINUE TO MONITOR.
[2019-10-16 07:30] VITALS: BP 132/73
--- NOTE | 2019-10-16 15:14 | NUR ---
ASSUMED CARE AT 0730. ALERT ORIENTED PLEASANT COOPERATIVE. HX OF CVA L NEGLECT. TRANSFERS WITH SBA G BELT WALKER AMBULATES TO BR TO VOID WEARS PULLUPS. UP TO RECLINER FOR MEALS. APPETITE FAIR FEEDS SELF AND TOOK MEDS WITHOUT DIFFICULTY. STAYED UP TILL 1400 AND THEN TO BR TO VOID RESTING IN BED ON L SIDE. USING CALL LIGHT APPROPRIATELY FOR ASSISTANCE.
[2019-10-16 20:00] VITALS: BP 117/67
--- NOTE | 2019-10-17 04:55 | NUR ---
ASSUMED PT CARE AT 1930. PT ALERT AND ORIENTED TO SELF, POLITE AND COOPERATIVE WITH CARES. FORGETFUL. HX OF CVA WITH LEFT NEGLECT. PT WAS SLEEPING AT SHIFT CHANGE, NEEDED ENCOURAGEMENT TO WAKE UP AND TAKE HER EVENING MEDS. NO C/O PAIN. UP WITH SBA, GAIT BELT AND WALKER TO BATHROOM TO VOID. PT SLEPT WELL OVERNIGHT. CALL LIGHT IN REACH. BED ALARM ON FOR SAFETY. HOURLY ROUNDING IN PROGRESS, WILL CONTINUE TO MONITOR.
[2019-10-17 08:00] VITALS: BP 121/64
--- NOTE | 2019-10-17 17:05 | NUR ---
PT OUT OF BED WITH THE HELP OF A WALKER, MIN ASSIST, SAT IN A RECLINER FOR FEW HRS IN THE MORNING. ATE 20-30% OF HER MEALS. VOIDING IN A TOILET. NO BM THIS SHIFT. HELPS WITH Q2 TURNS. DENIES ANY PAIN. FORGETFUL AND CONFUSED, FREQUENT REORIENTATION PROIVDED.
[2019-10-17 20:00] VITALS: BP 117/65
--- NOTE | 2019-10-18 04:56 | NUR ---
ASSUMED CARE AT 1920. ALERT AND ORIENTED X 1. FORGEFUL AND CONFUSED. MIN ASSIST WITH GAIT BELT AND WALKER. UP TO BR. PULLUPS. SLEPT WELL. CALL LIGHT IN REACH AND BED ALARM ON.
[2019-10-18 07:26] VITALS: BP 113/54
--- NOTE | 2019-10-18 17:17 | NUR ---
PT AWAKE/ALERT THIS SHIFT. ORIENTED TO SELF, SOMECONFUSION R/T DEMENTIA. FLUIDS ENCOURAGED, PT DRANK PRUNE JUICE W/MIRALAX THIS AM. PILLS SWALLOWED W/O DIFFICULTY. PT ATE LITTLE BREAKFAST, DRANK PART OF ENSURE SHAKE. PT ATRE 1 BITE OF LUNCH STATING SHE WAS "FULL" AND DECLINED ENSURE AT THAT TIME WELL. ABX FOR UTI CONTINUED. PT REMAINS ON FALL PRECAUTIONS R/T IMPULSIVITY. PT UP W/GAIT BELT & WALKER W/MIN ASSIST. PT AMBULATED W/THERAPY. PT HAD BM THIS SHIFT, BRIEFED FOR OCCASIONAL INCONTINENCE. PT RESTS IN ROOM W/CALL LIGHT IN REACH AND ALARMS IN PLACE FOR PT SAFETY. PT TO DC TOMORROW TO FACILITY. WILL CONTINUE TO MONITOR.
[2019-10-18 19:15] VITALS: BP 134/67
--- NOTE | 2019-10-19 04:47 | NUR ---
ASSUMED PT CARE AT 1930. PT ALERT AND ORIENTED TO SELF, FORGETFUL AND CONFUSED. DENIES PAIN. UP TO BATHROOM WITH MIN ASSIST, GAIT BELT AND WALKER. SLEPT WELL OVERNIGHT. CALL LIGHT IN REACH. BED ALARM ON FOR SAFETY. HOURLY ROUNDING IN PROGRESS, WILL CONTINUE TO MONITOR.
[2019-10-19 08:00] VITALS: BP 120/66
[2019-10-19 14:10] VITALS: BP 120/66
--- NOTE | 2019-10-19 15:20 | NUR ---
EMMA followed up with [facility] and they were unable to accept pt after all because a pt who was living there had a COVID positive test and they aren't able to accept any admissions at this time. EMMA called pt family and discussed other SNF options, they decided that they would prefer [facility], SW faxed referral and pt was accepted for their SNF today. EMMA faxed [phone] and final orders, med list to SNF and chart copied for continuation of care. EMMA provided number to pt nurse for report. EMMA called pt son and informed of pt acceptance and dc to [facility] today ride arranged for 3:00 to 3:30 pm. [facility] ph [phone]
--- NOTE | 2019-10-19 15:23 | NUR ---
ASSUMMED CARE OF PT AT 0730, PT ALERT, FORGETFUL, CONFUSED, PT TRANSFERS WITH SBA/MIN ASSIST GB WALKER, DENIES PAIN, DENIES NAUSEA, APETITE DECREASED, RED/HARD AREA ON LEFT BUTTOCK, BARRIER OINTMENT APPLIED, AMBULATES TO TOILET TO VOID, LARGE INCONTINENT BM X1 THIS SHIFT, WEARS BRIEF, USES CALL LIGHT APPROPRIATELY AT TIMES, PARTICIPATED IN ALL THERAPIES, HOURLY ROUNDING COMPLETED, ASSESSMENT COMPLETE, ORDERS OBTAINED FOR DISCHARGE TO FACILITY, REPORT CALLED TO FACILITY, PT TRANSPORTED BY [facility] WITH BELONGINGS, FAMILY INFORMED BY [employer].
== END 2019-10-19 15:10 | DRG 56 ==
LOC: M.REH 17:54
PROVIDERS: Nurse Practitioner; ADMIT Physical Medicine & Rehabilitation; ATTEND Physical Medicine & Rehabilitation
DX: G81.94 Hemiplegia, unspecified affecting left nondominant side (principal); I63.9 Cerebral infarction, unspecified; J18.9 Pneumonia, unspecified organism; I50.22 Chronic systolic (congestive) heart failure; E44.0 Moderate protein-calorie malnutrition; I47.1 Supraventricular tachycardia; I82.402 Acute embolism and thrombosis of unspecified deep veins of left lower extremity; N39.0 Urinary tract infection, site not specified; K59.00 Constipation, unspecified; I95.1 Orthostatic hypotension; R07.9 Chest pain, unspecified; H53.462 Homonymous bilateral field defects, left side; I11.0 Hypertensive heart disease with heart failure; F03.90 Unspecified dementia, unspecified severity, without behavioral disturbance, psychotic disturbance, mood disturbance, and anxiety; F32.9 Major depressive disorder, single episode, unspecified; I48.91 Unspecified atrial fibrillation; I73.9 Peripheral vascular disease, unspecified; K21.9 Gastro-esophageal reflux disease without esophagitis; Z90.49 Acquired absence of other specified parts of digestive tract; Z88.8 Allergy status to other drugs, medicaments and biological substances; Z68.20 Body mass index [BMI] 20.0-20.9, adult; Z86.718 Personal history of other venous thrombosis and embolism; Z79.01 Long term (current) use of anticoagulants; Z86.711 Personal history of pulmonary embolism; Z86.73 Personal history of transient ischemic attack (TIA), and cerebral infarction without residual deficits; Z03.818 Encounter for observation for suspected exposure to other biological agents ruled out; Z88.1 Allergy status to other antibiotic agents; Z96.651 Presence of right artificial knee joint; Z95.9 Presence of cardiac and vascular implant and graft, unspecified